=== PATIENT | female | born 1960 | race Caucasian/White ===

== ENCOUNTER → 2019-01-20 | Outpatient (CLI) | payer OTHER ==
[~2019-01-20] MED LIST: AMLODIPINE BESYL5 MG PO; CREON; CREON 10 CAPSUL1 CA1 PO; FOLIC ACID1 MG PO; LISINOPRIL2.5 MG PO; LISINOPRIL20 MG PO; PREMARIN0.625 MG; PROTONIX40 M1 PO; SIMVASTATIN5 MG PO; TIROSINT25 MCG PO; VITAMIN B-1100 M1 PO
[2019-01-20 12:34] LABS: CALCIUM 9.1 mg/dL (8.5-10.1); CREATININE 0.8 mg/dL (0.6-1.3); POTASSIUM 3.1 mmol/L (3.5-5.1)
[2019-01-20 12:35] LABS: ABSOLUTE BASOPHILS 0.1 thou/uL (0.0-0.2); ABSOLUTE EOSINOPHILS 0.1 thou/uL (0.0-0.7); ABSOLUTE LYMPHOCYTES 0.8 thou/uL (0.8-5.3); ABSOLUTE MONOCYTES 0.3 thou/uL (0.0-1.2); ABSOLUTE NEUTROPHILS 4.6 thou/uL (1.6-8.1); BASOPHILS 0.9 %; EOSINOPHILS 1.1 %; HEMATOCRIT 38.1 % (37.0-47.0); LYMPHOCYTES 13.8 %; MCH 33.6 pg (26.0-34.0); MCHC 34.2 g/dL (28.0-37.0); MCV 98.4 fL (80.0-100.0); MONOCYTES 5.6 %; MPV 8.4 fl. (7.2-11.1); NUCLEATED RBCS 0 /100WBC; PLATELET COUNT* 169 thou/uL (150-400); POLYS 78.6 %; RBC 3.87 mil/uL (4.20-5.00); RDW-CV 12.7 % (10.5-14.5); WBC 5.9 thou/uL (4.0-11.0)
== END ==
LOC: M.LAB 11:58 → M.CT 12:30
PROVIDERS: Nurse Practitioner Family
DX: R10.13 Epigastric pain (principal)